=== PATIENT | female | born 1970 | race Caucasian/White ===

== ENCOUNTER 2018-04-06 03:47 | Emergency (ER) | payer SELFPAY, OTHER ==
[2018-04-06 04:24] LABS: URINE PH (Dip) POC 6.5 (5.0-8.5)
[2018-04-06 04:24] LABS: URINE BLOOD (Dip) POC 2+ (NEGATIVE); URINE GLUCOSE (Dip) POC Negative (NEGATIVE); URINE KETONES (Dip) POC Negative (NEGATIVE); URINE LEUKOCYTE EST (Dip) POC 2+ (NEGATIVE); URINE NITRITE (Dip) POC Negative (NEGATIVE); URINE TOTAL PROTEIN POC Trace (NEGATIVE)
== END 2018-04-06 04:47 | disposition home or self-care (01) ==
LOC: FTE 03:47
DX: N30.90 Cystitis, unspecified without hematuria (principal); Z85.43 Personal history of malignant neoplasm of ovary
CPT/HCPCS: 81003; 81025; 99283

== ENCOUNTER 2018-04-17 04:01 | Emergency (ER) | payer OTHER ==
[2018-04-17] MEDS: ONDANSETRON (ODT) 4 MG TAB ODT (04:55)
[2018-04-17] MEDS: ASPIRIN 325 MG TAB PO (05:17)
[2018-04-17] MEDS: LORAZEPAM 1 MG TAB PO (05:17)
== END 2018-04-17 05:40 | disposition home or self-care (01) ==
LOC: FTE 04:01
DX: F41.9 Anxiety disorder, unspecified (principal)
CPT/HCPCS: 93005; 99283